=== PATIENT | male | born 1955 | race Caucasian/White ===

== ENCOUNTER 2020-01-29 12:58 | Emergency (ER) | payer MEDICARE, SELFPAY ==
[2020-01-29] VITALS (11 sets, daily range): BP systolic 103–136; BP diastolic 70–106; PULSE 60–145; RESP 14–20; TEMP 36.3; O2SAT 94–100; BMI 28.1
--- NOTE | 2020-01-29 13:12 | EKG12_ITS ---
Test Reason : Blood Pressure : / mmHG Vent. Rate : 129 BPM Atrial Rate : 375 BPM P-R Int : 000 ms QRS Dur : 090 ms QT Int : 286 ms P-R-T Axes : 000 -31 040 degrees QTc Int : 418 ms Atrial fibrillation with rapid ventricular response Left axis deviation Nonspecific ST and T wave abnormality Abnormal ECG Confirmed by TAL MARTINEZ ([id number]), news editor MATT CHRISTIAN ([id number]) on 02/02/2020 11:24:44 AM Referred By: Confirmed By:TAL MARTINEZ
--- NOTE | 2020-01-29 13:13 | RAD_ITS ---
STUDY: X-RAY CHEST REASON FOR EXAM: Male, 64 years old. AFIB X APPROX 1 HR, HX OF SAME TECHNIQUE: Single AP portable view of the chest. COMPARISON: None. FINDINGS: EKG electrodes are seen. Hyperinflation. The lungs are clear. There is no demonstrated pleural abnormality. Normal size heart. Normal mediastinum and estefany. Normal visualized pulmonary arteries. Normal visualized aortic arch and descending thoracic aorta. Normal visualized thoracic spine. There is a 1.8 cm and 0.8 cm well-defined bony density overlying the right shoulder joint. These may represent either joint mice or osteochondromatosis. There is no demonstrated abnormality of the visualized soft tissue structures of the upper abdomen. RAD/Chest 1 View (Portable) IMPRESSION: Hyperinflation. 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 Electronically Signed: Rusty Daley, at 13:52 EDT , Service support ,
--- NOTE | 2020-01-29 13:16 | ED.VISSUMM ---
- ER Visit Summary Date of Service: 01/29/20 Chief Complaint: Palpitations History of Present Illness: The patient is a 64 M presenting with palpitations. Patient states this started 1.5 hours prior to arrival. He felt himself go into atrial fibrillation. He has a history of atrial fibrillation. He has been cardioverted 2 times. He denies chest pain. He complains of mild shortness of breath. He states he has episodes of vertigo which is currently being worked up for M?ni?re's disease. He had an episode of vertigo yesterday with vomiting. These symptoms have resolved. He is unsure if his sodium may be low. He is not on anticoagulants. Physical Examination: Vitals are stable. Heart rate 129. Patient is afebrile. Alert no acute distress. HEENT exam is unremarkable. Neck is supple. Lungs are clear and equal bilaterally. Heart is irregularly irregular tachycardia rhythm. Abdomen is soft nontender nondistended. Extremities are unremarkable. No edema, no calf tenderness Skin is warm and dry. Remainder of exam is unremarkable. Emergency Department Course and Treatment: EKG shows atrial fibrillation with RVR rate of 129. Chest x-ray shows hyperinflation. 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 CBC, chemistries unremarkable. Troponin is negative. D-dimer negative. Patient was given Cardizem with improvement of his heart rate to 100. Discussed with Dr. Bryan. Recommends cardioversion and sending home on anticoagulants. Patient was consented for procedural sedation with propofol. He was given propofol IV. Synchronized cardioversion with 200 J was performed. Patient converted to normal sinus rhythm. Repeat EKG shows normal sinus rhythm rate of 61. Patient feels improved. He will be given a prescription for Eliquis. Advised to follow-up with his primary care physician and video news editor. Advised return to ED for worsening complaints. Disposition: Discharge home Impression: A. fib with RVR, synchronized cardioversion, procedural sedation This note was generated with [employer] dictation software. It may contain incorrect words, spelling, and punctuation that were not noted in review of the chart prior to signing ED Disposition - Plan for ED Patient: Instructions: ED AFIB Prescriptions: Apixaban [Eliquis] 5 mg PO BID #60 tab Prescription Printed Referrals: [facility] Doctor,Out of [NON-STAFF] -
[2020-01-29] MEDS: dilTIAZem 25 MG/5 ML Vial 20 MG IV BOLUS (13:21)
--- NOTE | 2020-01-29 13:26 | ED.RN ---
AFTER CARDIZEM GIVEN, PT C/O FEELING DIZZY. O2 VIA NC APPLIED. NOW FEELING BETTER. WILL CONTINUE TO MONITOR
[2020-01-29 13:33] LABS: Absolute Lymphocyte Count 1.88 X10^3/uL (0.83-4.51); Absolute Neutrophil Count 2.9 X10^3/uL (2.0-7.7); Basophil# 0.03 X10^3/uL; Basophil% 0.6 % (0-1); Eosinophil# 0.14 X10^3/uL; Eosinophils% 2.7 % (0-5); Hemoglobin 16.3 g/dL (13.0-16.5); Lymphocyte # 1.88 X10^3/ul (4.0); Lymphocyte % 35.6 % (19-41); Mean Corp Hgb Conc 33.3 g/dL (32-36); Mean Corpuscular Hgb 29.6 pg (27.0-32.0); Mean Corpuscular Volume 89.1 fL (80-94); Mean Platelet Vol. 10.2 fl (6.2-12.0); Monocyte# 0.37 X10^3/uL; NRBC Flagged by Analyzer 0 % (0-5); Neutrophil # 2.85 X10^3/uL (2.7-7.7); Neutrophil % 53.9 % (47-70); Platelet Count 248 K/mm3 (150-450); RBC Distribution Width CV 12.7 % (11.6-14.6); RBC Distribution Width SD 41.6 fl (35.1-43.9); White Blood Count 5.3 K/mm3 (4.4-11.0)
[2020-01-29 13:42] LABS: Anion Gap 7 (5-15); BUN 19 mg/dL (7-18); BUN/Creat Ratio 17.1 RATIO (10-20); Calcium,Total 9.7 mg/dL (8.5-10.1); Chloride 105 mmol/L (98-107); Creatinine, Serum 1.11 mg/dL (0.70-1.30); EST Glomerular Filtration Rate 71 mL/min (>60); Est Glom Filt Rate - Afr Amer 85 mL/min (>60); Estimated Creatinine Clearance 77.14 ml/min; Glucose 125 mg/dL (74-106); Potassium 4.1 mmol/L (3.5-5.1); Sodium Level 138 mmol/L (136-145)
[2020-01-29 14:11] LABS: D-Dimer Quantitative (DVT/PE) <= 0.27 FEU/ug/m (0.27-0.49)
[2020-01-29] MEDS: Propofol 200 MG/20 ML Vial IV BOLUS (16:06)
--- NOTE | 2020-01-29 16:07 | EKG12_ITS ---
Test Reason : REPEAT Blood Pressure : / mmHG Vent. Rate : 061 BPM Atrial Rate : 061 BPM P-R Int : 184 ms QRS Dur : 096 ms QT Int : 418 ms P-R-T Axes : 052 -40 032 degrees QTc Int : 420 ms Normal sinus rhythm Left axis deviation Inferior infarct , age undetermined Abnormal ECG Confirmed by TAL MARTINEZ ([id number]), videotape editor MATT CHRISTIAN ([id number]) on 02/02/2020 11:25:04 AM Referred By: Confirmed By:TAL MARTINEZ
--- NOTE | 2020-01-29 16:17 | ED.DEP ---
ED Disposition - Plan for ED Patient: Instructions: ED AFIB Prescriptions: Apixaban [Eliquis] 5 mg PO BID #60 tablet Referrals: [facility],Out of [NON-STAFF] -
[2020-01-29] MEDS: APIXABAN 5 MG TABLET PO (17:19)
== END 2020-01-29 17:20 | disposition home or self-care (01) ==
PROVIDERS: Emergency Provider Emergency Medicine
DX: I48.91 Unspecified atrial fibrillation (principal)
CPT/HCPCS: 71045; 80048; 84484; 85025; 85379; 92960; 93005; 96374; 99285; J7030; A4216

== ENCOUNTER 2024-09-06 19:38 | Emergency (ER) | payer MEDICARE, SELFPAY ==
[2024-09-06] VITALS (7 sets, daily range): BP systolic 106–150; BP diastolic 67–99; PULSE 43–83; RESP 16–18; TEMP 36.8; O2SAT 97–99; BMI 28.4
--- NOTE | 2024-09-06 20:03 | EX.ED.DYSGE1 ---
HPI History of Present Illness Chief Complaint: Palpitations Narrative Narrative: 69-year-old male past medical history of atrial fibrillation had cardiac ablation performed by Dr. Dodd at [facility] in January of last year. He had a longstanding atrial fibrillation. He states today at 2:30 PM, approximately 5 and half hours ago, he was exerting himself and he felt like he was in atrial fibrillation again. He denies any chest pain but states he is short of breath when he exerts himself. He called his apiculture teacher and he was told to take 2.5 mg of his beta-raul, 75 mg of flecainide, and 5 mg of Eliquis. He denies any other exacerbating or alleviating factors but presents to the emergency department at the recommendation of cardiology for evaluation. [facility] Medical History History of renal calculi Osteoarthritis Neck pain Back pain Prostate cancer Home Medications ?Medication ?Instructions ?Recorded ?Last Taken ?Type atorvastatin 40 mg tablet 40 mg PO QHS 01/29/20 Unknown History celecoxib 200 mg capsule 200 mg PO DAILY 01/29/20 Unknown History dutasteride 0.5 mg capsule 0.5 mg PO DAILY 01/29/20 Unknown History flecainide 50 mg tablet 50 mg PO BID 01/29/20 Unknown History fluoxetine 20 mg capsule 20 mg PO DAILY 01/29/20 Unknown History pantoprazole 40 mg tablet,delayed 40 mg PO DAILY 01/29/20 Unknown History release zolpidem 12.5 mg tablet,extended 12.5 mg PO QHS PRN PRN Insomnia 01/29/20 Unknown History release,multiphase mupirocin 2 % topical ointment 1 applic topical TID #22 grams 07/19/24 Unknown Rx apixaban 5 mg tablet (Eliquis) 5 mg PO Q12.TCU 09/06/24 Unknown History Allergy/AdvReac Type Severity Reaction Status Date / Time ranitidine AdvReac Intermediate Other Verified 09/06/24 19:40 oxycodone AdvReac Mild Nausea Verified 09/06/24 19:40 meperidine (From Demerol) AdvReac Nausea Verified 09/06/24 19:40 Surgical History History of prostate surgery History of back surgery History of right hip replacement History of cardiac radiofrequency ablation Social History Smoking Status: Never smoker ROS ROS ED ROS Narrative Review of systems positive for palpitations consistent with previous A-fib. No chest pain. Positive shortness of breath with exertion. No leg swelling or other symptoms. EXAM Physical Exam Narrative Exam Narrative: Afebrile. Vital signs noted. Nontoxic-appearing. HEENT examination is unremarkable. Cardiovascular examination reveals an irregularly irregular rhythm with a normal rate. No murmurs, rubs, or gallops appreciated. Lungs are clear to auscultation bilaterally. Abdomen is soft and nontender with positive bowel sounds. Neurological examination is nonfocal and nonlateralizing. No pedal edema noted. Const Vital Signs: 09/06/24 19:38 09/06/24 20:34 09/06/24 20:51 Temperature 98.2 F Temperature Source Oral Pulse Rate 43 L 76 Respiratory Rate 16 18 Respiratory Effort Short of Breath Respiratory Pattern Normal Blood Pressure 110/77 108/67 Blood Pressure Mean 88 80 Pulse Ox 98 98 Oxygen Delivery Method Room Air Room Air Oxygen Flow Rate (L/min) EtCo2 (Normal 35-45 , high quality CPR 10-20 & ROSC>/=40mmHg 09/06/24 21:00 09/06/24 23:00 09/06/24 23:08 Temperature Temperature Source Pulse Rate 82 83 81 Respiratory Rate 18 18 16 Respiratory Effort Respiratory Pattern Blood Pressure 106/81 H 112/79 150/99 H Blood Pressure Mean 89 90 Pulse Ox 98 97 99 Oxygen Delivery Method Room Air Room Air Room Air Oxygen Flow Rate (L/min) EtCo2 (Normal 35-45 , high quality CPR 10-20 & ROSC>/=40mmHg 35 09/06/24 23:08 09/06/24 23:52 Temperature Temperature Source Pulse Rate Respiratory Rate Respiratory Effort Respiratory Pattern Blood Pressure Blood Pressure Mean Pulse Ox Oxygen Delivery Method Nasal Cannula Oxygen Flow Rate (L/min) 3 EtCo2 (Normal 35-45 , high quality CPR 10-20 & ROSC>/=40mmHg 32 31 MDM MDM MDM Narrative Medical decision making narrative: Differential diagnosis includes but not limited to A-fib with RVR versus sinus tachycardia versus other palpitations versus other shortness of breath including ACS versus pneumonia versus pneumothorax. I have very low suspicion for the latter diagnoses. History and physical does not support this. In discussion with the patient, he states that he wants to be cardioverted here in the emergency department. He would like me to discuss this with his apiculture teacher. I did page Dr. Dodd. EKG was obtained and interpreted by myself independently as atrial fibrillation at 92 bpm without other ectopy or acute ST changes. His blood pressure is 110/77 currently and pulse ox 98% on room air. Chest x-ray will be obtained to rule out pneumonia or pneumothorax although history and physical does not support these diagnoses. He is feeling more palpitations and shortness of breath with exertion. I reviewed his laboratory work and he has normal white count of 4.5, hemoglobin 14.3, hematocrit 42.5, platelet count 232. Chloride slightly elevated at 112 which I think is nonspecific, potassium normal 3.5, glucose 113 with a normal anion gap of 5. LFTs are grossly unremarkable. High-sensitivity troponin 18. Magnesium normal at 1.8. Chest x-ray 1 view interpreted by myself independently shows no evidence of acute process, no pneumothorax, no pneumonia. I reviewed the radiology report which confirms my independent interpretation. After multiple pages, I was able to get a hold of the director operations broadcast Dr. Dodd. In discussion with her and the results of his laboratories, and the fact that the patient is certain that he went in to atrial fibrillation around 2 to 2:30 PM, she agrees with cardioversion. She was told that he did take his Eliquis, his beta-raul half tablet, and flecainide today. She states that she usually performs cardioversion at 200 J synchronized. Patient states that he always converts with 200 J. He was consented for procedural sedation and cardioversion using propofol which he states he has used before. Risks and benefits discussed including possibility of stroke and cardiac arrest. He acknowledges an understanding and signed the consent form. After cardioversion he is supposed to continue his Eliquis for at least 3 weeks and take his beta-raul and flecainide. He will follow-up with his director operations broadcast, Dr. Dodd. Disposition is discharged home in improved and stable condition. History & Record Review Discussion w/independent historian: Patient Lab Data Attestation: I reviewed the patient's lab results. Labs: Laboratory Results - last 24 hr 09/06/24 20:15 WBC 4.5 RBC 4.93 Hgb 14.3 Hct 42.5 MCV 86.2 MCH 29.0 MCHC 33.6 RDW Std Deviation 41.9 RDW Coeff of Tao 13.3 Plt Count 232 MPV 10.3 Immature Gran % (Auto) 0.200 Neut % (Auto) 49.5 Lymph % (Auto) 37.7 [place] % (Auto) 9.9 Eos % (Auto) 1.8 Baso % (Auto) 0.9 Absolute Neuts (auto) 2.2 Absolute Lymphs (auto) 1.68 Nucleated RBC % 0 Sodium 142 Potassium 3.5 Chloride 112 H Carbon Dioxide 24.0 Anion Gap 5 BUN 25 H Creatinine 0.91 Estim Creat Clear Calc 95.64 Est GFR (MDRD) Af Amer 106 Est GFR (MDRD) Non-Af 88 BUN/Creatinine Ratio 27.5 H Glucose 113 H Calcium 8.8 Magnesium 1.8 Total Bilirubin 0.30 AST 21 ALT 30 Alkaline Phosphatase 88 Troponin I High Sens 18 Total Protein 6.8 Albumin 3.4 Globulin 3.4 Albumin/Globulin Ratio 1.0 Radiography Diagnostic Testing: Clinical Impression(s) from Imaging Studies Chest X-Ray 09/06/24 20:30 IMPRESSION: No radiographic evidence of acute cardiopulmonary disease. Electronically Signed: Hira Otoole MD at 21:05 EST , Procedures Other Procedures Procedure(s): Cardioversion: Patient consented for electrocardioversion. Timeout performed. 100 mg of propofol was delivered intravenously for adequate sedation. Cardioversion was achieved with 200 J synchronized electrocardioversion. Repeat EKG status post cardioversion reveals on my independent interpretation sinus rhythm with premature supraventricular complexes at [address] changes. No STEMI. Upon awakening, patient feels improved. Patient tolerated procedure well. Discharge Plan Triage Chief Complaint: Palpitations ED Provider: Radu Williamson Dx/Rx/DC Orders Clinical Impression: Atrial fibrillation, Encounter for cardioversion procedure, SOB (shortness of breath) Instructions: Cardioversion Dc, ED AFIB, ED Procedural Sedation, (Adult) Prescriptions: No Action mupirocin 2 % ointment 1 applic topical TID Qty: 22 1RF celecoxib 200 MG capsule 200 mg PO DAILY atorvastatin 40 MG tablet 40 mg PO QHS pantoprazole 40 MG tablet 40 mg PO DAILY flecainide 50 MG tablet 50 mg PO BID fluoxetine 20 MG capsule 20 mg PO DAILY dutasteride 0.5 MG capsule 0.5 mg PO DAILY zolpidem 12.5 MG tablet,ext release multiphase 12.5 mg PO QHS PRN PRN (Reason: Insomnia) Eliquis 5 mg tablet 5 mg PO Q12.TCU Primary Care Provider: SHAYNA MATHIS Referrals: [facility] Doctor,Out of [Non-Staff] - Activity Restrictions/Additional Instructions: Follow-up with your director operations broadcast Dr. Dodd. You need to take your apixaban 5 mg twice a day for at least 3 weeks. Continue your flecainide and your beta-raul as previously directed. Call Dr. Dodd this week for follow-up appointment. Print Language: Malay Disposition Disposition: Home, Self Care
--- NOTE | 2024-09-06 20:24 | EKG12_ITS ---
Test Reason : PALPS Blood Pressure : */* mmHG Vent. Rate : 92 BPM Atrial Rate : * BPM P-R Int : * ms QRS Dur : 90 ms QT Int : 354 ms P-R-T Axes : * -20 60 degrees QTcB Int : 437 ms Atrial fibrillation Abnormal ECG Confirmed by LANA GALINDO, JARED ([id number]), film and video editor MARY CARMEN ROBERTS ([id number]) on 09/08/2024 7:58:02 AM Referred By: Confirmed By: JARED SCHWARTZ MD
--- NOTE | 2024-09-06 20:30 | RAD_ITS ---
EXAM: XR CHEST, 1 VIEW CLINICAL INDICATION: Shortness of breath TECHNIQUE: Frontal view of the chest. COMPARISON: 01/29/2020 FINDINGS: LUNGS AND PLEURAL SPACES: Unremarkable. No consolidation or edema. No pneumothorax. No effusion. HEART: Unremarkable. Cardiac silhouette not enlarged. MEDIASTINUM: Central airways and mediastinal contour are unremarkable. BONES/JOINTS: Unremarkable. No acute fracture. SOFT TISSUES: Unremarkable. RAD/Chest 1 View (Portable) IMPRESSION: No radiographic evidence of acute cardiopulmonary disease. Electronically Signed: Hira Otoole MD at 21:05 EST ,
[2024-09-06 20:34] LABS: Absolute Lymphocyte Count 1.68 X10^3/uL (0.83-4.51); Absolute Neutrophil Count 2.2 X10^3/uL (2.0-7.7); Basophil# 0.04 X10^3/uL; Basophil% 0.9 % (0-1); Eosinophil# 0.08 X10^3/uL; Eosinophils% 1.8 % (0-5); Hematocrit 42.5 % (40-54); Hemoglobin 14.3 g/dL (13.0-16.5); Lymphocyte # 1.68 X10^3/ul (0.83-4.51); Lymphocyte % 37.7 % (19-41); Mean Corp Hgb Conc 33.6 g/dL (32-36); Mean Corpuscular Volume 86.2 fL (80-94); Mean Platelet Vol. 10.3 fl (6.2-12.0); Monocyte# 0.44 X10^3/uL; Monocyte% 9.9 % (0-10); NRBC Flagged by Analyzer 0 % (0-5); Neutrophil # 2.21 X10^3/uL (2.7-7.7); Neutrophil % 49.5 % (47-70); Platelet Count 232 K/mm3 (150-450); RBC Distribution Width CV 13.3 % (11.6-14.6); RBC Distribution Width SD 41.9 fl (35.1-43.9); Red Blood Count 4.93 M/mm3 (4.6-6.2); White Blood Count 4.5 K/mm3 (4.4-11.0)
[2024-09-06 20:48] LABS: AST(SGOT) 21 U/L (15-37); Alanine Aminotransfer ALT/SGPT 30 U/L (16-61); Albumin, Serum 3.4 g/dL (3.2-5.0); Alkaline Phosphatase 88 U/L (45-117); Anion Gap 5 (5-15); BUN 25 mg/dL (7-18); BUN/Creat Ratio 27.5 RATIO (10-20); Calcium,Total 8.8 mg/dL (8.5-10.1); Chloride 112 mmol/L (98-107); Creatinine, Serum 0.91 mg/dL (0.70-1.30); EST Glomerular Filtration Rate 88 mL/min (>60); Est Glom Filt Rate - Afr Amer 106 mL/min (>60); Estimated Creatinine Clearance 95.64 ml/min; Globulin 3.4 g/dL (2.2-4.2); Glucose 113 mg/dL (74-106); Magnesium 1.8 mg/dL (1.6-2.6); Potassium 3.5 mmol/L (3.5-5.1); Protein, Total 6.8 g/dL (6.4-8.2); Sodium Level 142 mmol/L (136-145); Troponin-I HS 18 pg/mL (3.0-78.0)
[2024-09-06] MEDS: Propofol 200 MG/20 ML Vial 20 MG IV BOLUS (23:35)
[2024-09-06] MEDS: 0.9% Normal Saline (500mL Bag) 500 ML 15 ML IV (23:36)
--- NOTE | 2024-09-06 23:57 | EKG12_ITS ---
Test Reason : REPEAT Blood Pressure : */* mmHG Vent. Rate : 66 BPM Atrial Rate : 66 BPM P-R Int : 188 ms QRS Dur : 96 ms QT Int : 420 ms P-R-T Axes : 25 -41 27 degrees QTcB Int : 440 ms Sinus rhythm with Premature supraventricular complexes Left axis deviation Abnormal ECG Confirmed by LANA GALINDO, JARED ([id number]), associate editor MARY CARMEN ROBERTS ([id number]) on 09/08/2024 7:58:13 AM Referred By: Confirmed By: JARED SCHWARTZ MD
[2024-09-07] VITALS: BP 114/78; PULSE 64; RESP 18; O2SAT 99
--- NOTE | 2024-09-07 00:05 | EDS_ITS ---
HPI History of Present Illness Chief Complaint: Palpitations Narrative Narrative: This is a supplemental note/procedure note for procedural sedation on this patient. See other note for the remainder of the documentation. [facility] Medical History History of renal calculi Osteoarthritis Neck pain Back pain Prostate cancer Home Medications ?Medication ?Instructions ?Recorded ?Last Taken ?Type atorvastatin 40 mg tablet 40 mg PO QHS 01/29/20 Unknown History celecoxib 200 mg capsule 200 mg PO DAILY 01/29/20 Unknown History dutasteride 0.5 mg capsule 0.5 mg PO DAILY 01/29/20 Unknown History flecainide 50 mg tablet 50 mg PO BID 01/29/20 Unknown History fluoxetine 20 mg capsule 20 mg PO DAILY 01/29/20 Unknown History pantoprazole 40 mg tablet,delayed 40 mg PO DAILY 01/29/20 Unknown History release zolpidem 12.5 mg tablet,extended 12.5 mg PO QHS PRN PRN Insomnia 01/29/20 Unknown History release,multiphase mupirocin 2 % topical ointment 1 applic topical TID #22 grams 07/19/24 Unknown Rx apixaban 5 mg tablet (Eliquis) 5 mg PO Q12.TCU 09/06/24 Unknown History Allergy/AdvReac Type Severity Reaction Status Date / Time ranitidine AdvReac Intermediate Other Verified 09/06/24 19:40 oxycodone AdvReac Mild Nausea Verified 09/06/24 19:40 meperidine (From Demerol) AdvReac Nausea Verified 09/06/24 19:40 Surgical History History of prostate surgery History of back surgery History of right hip replacement History of cardiac radiofrequency ablation Social History Smoking Status: Never smoker EXAM Physical Exam Const Vital Signs: 09/06/24 19:38 09/06/24 20:34 09/06/24 20:51 Temperature 98.2 F Temperature Source Oral Pulse Rate 43 L 76 Pulse Rate [1 (Initial Baseline)] Pulse Rate [2] Pulse Rate [3] Respiratory Rate 16 18 Respiratory Rate [1 (Initial Baseline)] Respiratory Rate [2] Respiratory Rate [3] Respiratory Effort Short of Breath Respiratory Pattern Normal Blood Pressure 110/77 108/67 Blood Pressure [1 (Initial Baseline)] Blood Pressure [3] Blood Pressure Mean 88 80 Pulse Ox 98 98 Oxygen Delivery Method Room Air Room Air Oxygen Delivery Method [1 (Initial Baseline)] Oxygen Delivery Method [2] Oxygen Delivery Method [3] Oxygen Flow Rate (L/min) Oxygen Flow Rate (L/min) [1 (Initial Baseline)] Oxygen Flow Rate (L/min) [2] Oxygen Flow Rate (L/min) [3] EtCo2 (Normal 35-45 , high quality CPR 10-20 & ROSC>/=40mmHg EtCo2 (Normal 35-45 , high quality CPR 10-20 & ROSC>/=40mmHg [1 (Initial Baseline)] EtCo2 (Normal 35-45 , high quality CPR 10-20 & ROSC>/=40mmHg [2] EtCo2 (Normal 35-45 , high quality CPR 10-20 & ROSC>/=40mmHg [3] 09/06/24 21:00 09/06/24 23:00 09/06/24 23:07 Temperature Temperature Source Pulse Rate 82 83 Pulse Rate [1 (Initial Baseline)] 64 Pulse Rate [2] 64 Pulse Rate [3] 64 Respiratory Rate 18 18 Respiratory Rate [1 (Initial Baseline)] 16 Respiratory Rate [2] 17 Respiratory Rate [3] 16 Respiratory Effort Respiratory Pattern Blood Pressure 106/81 H 112/79 Blood Pressure [1 (Initial Baseline)] 138/82 H Blood Pressure [3] 115/80 Blood Pressure Mean 89 90 Pulse Ox 98 97 Oxygen Delivery Method Room Air Room Air Oxygen Delivery Method [1 (Initial Baseline)] Nasal Cannula Oxygen Delivery Method [2] Nasal Cannula Oxygen Delivery Method [3] Room Air Oxygen Flow Rate (L/min) Oxygen Flow Rate (L/min) [1 (Initial Baseline)] 3 Oxygen Flow Rate (L/min) [2] 3 Oxygen Flow Rate (L/min) [3] 3 EtCo2 (Normal 35-45 , high quality CPR 10-20 & ROSC>/=40mmHg EtCo2 (Normal 35-45 , high quality CPR 10-20 & ROSC>/=40mmHg [1 (Initial Baseline)] 35 EtCo2 (Normal 35-45 , high quality CPR 10-20 & ROSC>/=40mmHg [2] 32 EtCo2 (Normal 35-45 , high quality CPR 10-20 & ROSC>/=40mmHg [3] 31 09/06/24 23:08 09/06/24 23:08 09/06/24 23:52 Temperature Temperature Source Pulse Rate 81 Pulse Rate [1 (Initial Baseline)] Pulse Rate [2] Pulse Rate [3] Respiratory Rate 16 Respiratory Rate [1 (Initial Baseline)] Respiratory Rate [2] Respiratory Rate [3] Respiratory Effort Respiratory Pattern Blood Pressure 150/99 H Blood Pressure [1 (Initial Baseline)] Blood Pressure [3] Blood Pressure Mean Pulse Ox 99 Oxygen Delivery Method Room Air Nasal Cannula Oxygen Delivery Method [1 (Initial Baseline)] Oxygen Delivery Method [2] Oxygen Delivery Method [3] Oxygen Flow Rate (L/min) 3 Oxygen Flow Rate (L/min) [1 (Initial Baseline)] Oxygen Flow Rate (L/min) [2] Oxygen Flow Rate (L/min) [3] EtCo2 (Normal 35-45 , high quality CPR 10-20 & ROSC>/=40mmHg 35 32 31 EtCo2 (Normal 35-45 , high quality CPR 10-20 & ROSC>/=40mmHg [1 (Initial Baseline)] EtCo2 (Normal 35-45 , high quality CPR 10-20 & ROSC>/=40mmHg [2] EtCo2 (Normal 35-45 , high quality CPR 10-20 & ROSC>/=40mmHg [3] 09/07/24 00:00 Temperature Temperature Source Pulse Rate 64 Pulse Rate [1 (Initial Baseline)] Pulse Rate [2] Pulse Rate [3] Respiratory Rate 18 Respiratory Rate [1 (Initial Baseline)] Respiratory Rate [2] Respiratory Rate [3] Respiratory Effort Respiratory Pattern Blood Pressure 114/78 Blood Pressure [1 (Initial Baseline)] Blood Pressure [3] Blood Pressure Mean 90 Pulse Ox 99 Oxygen Delivery Method Room Air Oxygen Delivery Method [1 (Initial Baseline)] Oxygen Delivery Method [2] Oxygen Delivery Method [3] Oxygen Flow Rate (L/min) Oxygen Flow Rate (L/min) [1 (Initial Baseline)] Oxygen Flow Rate (L/min) [2] Oxygen Flow Rate (L/min) [3] EtCo2 (Normal 35-45 , high quality CPR 10-20 & ROSC>/=40mmHg EtCo2 (Normal 35-45 , high quality CPR 10-20 & ROSC>/=40mmHg [1 (Initial Baseline)] EtCo2 (Normal 35-45 , high quality CPR 10-20 & ROSC>/=40mmHg [2] EtCo2 (Normal 35-45 , high quality CPR 10-20 & ROSC>/=40mmHg [3] MDM [facility] Lab Data Labs: Laboratory Results - last 24 hr 09/06/24 20:15 WBC 4.5 RBC 4.93 Hgb 14.3 Hct 42.5 MCV 86.2 MCH 29.0 MCHC 33.6 RDW Std Deviation 41.9 RDW Coeff of Tao 13.3 Plt Count 232 MPV 10.3 Immature Gran % (Auto) 0.200 Neut % (Auto) 49.5 Lymph % (Auto) 37.7 [place] % (Auto) 9.9 Eos % (Auto) 1.8 Baso % (Auto) 0.9 Absolute Neuts (auto) 2.2 Absolute Lymphs (auto) 1.68 Nucleated RBC % 0 Sodium 142 Potassium 3.5 Chloride 112 H Carbon Dioxide 24.0 Anion Gap 5 BUN 25 H Creatinine 0.91 Estim Creat Clear Calc 95.64 Est GFR (MDRD) Af Amer 106 Est GFR (MDRD) Non-Af 88 BUN/Creatinine Ratio 27.5 H Glucose 113 H Calcium 8.8 Magnesium 1.8 Total Bilirubin 0.30 AST 21 ALT 30 Alkaline Phosphatase 88 Troponin I High Sens 18 Total Protein 6.8 Albumin 3.4 Globulin 3.4 Albumin/Globulin Ratio 1.0 Radiography Diagnostic Testing: Clinical Impression(s) from Imaging Studies Chest X-Ray 09/06/24 20:30 IMPRESSION: No radiographic evidence of acute cardiopulmonary disease. Electronically Signed: Hira Otoole MD at 21:05 EST , Procedures Procedural Sedation Cardioversion: Consent Signed: Yes Any Problems With Anesthesia: No You/Your family experience fever (hyperthermia) w/anesthesia: No Sedation medication: Propofol (100 mg) Dose: 100 Route: IV Total Moderate Sedation Units: 10 Maliampati Score: Class II ASA Classification: II Comment:: Patient with history of sleep apnea Discharge Plan Triage Chief Complaint: Palpitations ED Provider: Radu Williamson Dx/Rx/DC Orders Clinical Impression: Atrial fibrillation, Encounter for cardioversion procedure, SOB (shortness of breath) Instructions: Cardioversion Dc, ED AFIB, ED Procedural Sedation, (Adult) Prescriptions: No Action mupirocin 2 % ointment 1 applic topical TID Qty: 22 1RF celecoxib 200 MG capsule 200 mg PO DAILY atorvastatin 40 MG tablet 40 mg PO QHS pantoprazole 40 MG tablet 40 mg PO DAILY flecainide 50 MG tablet 50 mg PO BID fluoxetine 20 MG capsule 20 mg PO DAILY dutasteride 0.5 MG capsule 0.5 mg PO DAILY zolpidem 12.5 MG tablet,ext release multiphase 12.5 mg PO QHS PRN PRN (Reason: Insomnia) Eliquis 5 mg tablet 5 mg PO Q12.TCU Primary Care Provider: SHAYNA MATHIS Referrals: [facility] Doctor,Out of [Non-Staff] - Activity Restrictions/Additional Instructions: Follow-up with your target developer Dr. Dodd. You need to take your apixaban 5 mg twice a day for at least 3 weeks. Continue your flecainide and your beta-raul as previously directed. Call Dr. Dodd this week for follow- up appointment. Print Language: Malay Disposition Disposition: Home, Self Care
[2024-09-07 00:28] VITALS: BP 112/83; PULSE 63; RESP 18; TEMP 36.7; O2SAT 98
== END 2024-09-07 00:30 | disposition home or self-care (01) ==
PROVIDERS: Emergency Provider Emergency Medicine; Visit Provider Emergency Medicine
DX: I48.91 Unspecified atrial fibrillation (principal); R06.02 Shortness of breath; Z79.01 Long term (current) use of anticoagulants
CPT/HCPCS: 71045; 80053; 83735; 84484; 85025; 93005; 96360; 99284; A4216